=== PATIENT | female | born 1950 | race African-American/Black ===

== ENCOUNTER → 2017-04-28 | Outpatient (CLI) | payer BC ==
[~2017-04-28] MED LIST: AMLO5TAB2 PO; CHOL500016 PO; DICL75TA PO; FENO145T2 PO; IOHEXOL 180 MG/ML 10 ML VIAL. ONE; SIMV20TA3 PO; methylPREDNISolone ACETATE 40 MG/ML VIAL. ONE; methylPREDNISolone ACETATE 80 MG/ML VIAL. ONE
--- NOTE | 2017-04-29 03:12 | PAIN ---
DATE OF SERVICE: 04/28/2017 INITIAL CONSULTATION FOR PAIN CLINIC CHIEF COMPLAINT: Low back and left lower extremity pain. HISTORY OF PRESENT ILLNESS: This is a 66-year-old female who presents with history of pain since January of this year in the low back and left lower extremity, not a result of any specific injury or action she is aware of, but happened fairly suddenly. She had difficulty getting out of the bed one morning in January, has had pain in the low back and left lower extremity since that time. She has been doing some physical therapy and is currently doing it as well over the past about 4 weeks. The patient reports it is improved, but not to more than 50% improvement. The patient reports the pain is now tingling with numbness and shooting pain, worse with standing and walking, better with lying down or sitting in the low back bilaterally into the posterior gluteus, posterior thigh on the left side, posterior calf, knee and into the foot and the sole of the foot, which feels like she is walking with a brick under her shoe on the left side only. The patient reports her disability rating from 0 to 10, 10 being the worst, is a 5 with family and home responsibilities, social activity, occupation and sexual behavior, 10 with recreation, 0 with self care and life support activities. The patient has tried prednisone pack which did not help, hydrocodone which does help and cyclobenzaprine which was not helpful as well. The patient did have a MRI scan of the lumbar spine dated 04/17/2017 showing moderate degenerative changes with most prominent at L3-L4 with moderate circumferential disk bulge and right central disk extrusion with moderate facet arthropathy and ligamentum flavum infolding resulting in moderate to severe bilateral neural foraminal stenosis and severe spinal canal stenosis. The patient is currently doing physical therapy as noted. She had not any modalities or other treatments at this time. The patient reports no loss of motor function, but does have significant fatigability in the left leg with walking or standing. Again better with sitting or lying down. The walking and standing exacerbated it significantly. PAST MEDICAL HISTORY: The patient's past medical history is significant for hypertension and no other significant medical history. PAST SURGICAL HISTORY: No previous surgeries. CURRENT MEDICATIONS: Include amlodipine, diclofenac, simvastatin, vitamin D and fenofibrate. ALLERGIES: The patient has no known drug allergies. FAMILY HISTORY: Significant for no major medical problems or conditions. SOCIAL HISTORY: The patient does not smoke, drinks alcohol very rarely. She is and lives with her spouse and lives locally in [facility], works at a local bank. REVIEW OF SYSTEMS: The patient's review of systems is positive for those items mentioned in the history of present illness. All systems reviewed and otherwise negative. It is complete, full and well documented on the patient's chart. PHYSICAL EXAMINATION: VITAL SIGNS: The patient's blood pressure is 173/93, pulse is 81, respirations 18, temperature 97.4 degrees Fahrenheit, height is 5 feet 4 inches and weighs 192 pounds. GENERAL: The patient is awake, alert, oriented, appropriate and very pleasant demeanor. HEENT: Head shows normocephalic and atraumatic. Extraocular movements are intact and symmetrical. Oral cavity shows mucous membranes are moist and pink. Dentition is intact. NECK: Shows anterior throat supple without palpable lymphadenopathy noted. Swallow reflex is symmetrical. CHEST: Shows normal on inspection. Breath sounds are clear to auscultation bilaterally. HEART: Shows S1 and S2 clear. No murmurs auscultated. ABDOMEN: Soft, nontender and nondistended. No palpable organomegaly is noted. No rebound or guarding demonstrated. Musculoskeletal: The patient's back shows spine grossly in the midline, normal-appearing cervical lordotic curvature, thoracic kyphotic curvature and lumbar lordotic curvature with no previous bruises, lesions rashes or scars noted. Lumbar paraspinous musculature shows symmetrical on inspection. With palpation shows some mild to moderate tenderness with palpation in the lumbar distribution without specific radiation, without asymmetry atrophy or hypertrophy. No tenderness with palpation over the spinous processes, sacrum or sacroiliac regions. The patient has good rotational motion of the lumbar spine, both laterally as well as extension and flexion without difficulty without pain reported. Lower extremities show deep tendon reflexes at 2+ in the patellar and 1+ tendo calcaneus tendons. Motor exam is strong with 5/5 dorsiflexion and extension bilaterally. Peripheral pulses are 1+ posterior tibial and dorsalis pedis pulses. No peripheral edema is noted bilaterally. Straight leg raising is noted to be positive on the left at about 45 degrees decreased with knee flexion and left side is negative. Gaenslen's and Tristin's maneuvers are negative bilaterally. The patient is able to stand, stand on her toes without difficulty or loss of balance, is ambulating without any assistive devices and has a normal-appearing gait for a short distance in the office today, did not appear to favor the right or left lower extremity to any significant degree. IMPRESSION: 1. This is a 66-year-old female with approximate 3-month history of increasing pain in the low back and left lower extremity in a radicular fashion. 2. MRI scan of the lumbar spine as noted. 3. History of hypertension. PLAN: Options were discussed with the patient including conservative medical management, physical therapy and interventional techniques and she is doing physical therapy; however, she is interested in interventional techniques. We discussed a lumbar epidural steroid injection using description as well as anatomical models to describe the procedure. Risks were then discussed including, but not limited to bleeding, infection, possibility of epidural hematoma, subsequent neurologic compromise, dural puncture, headaches, spinal cord and/or nerve damage, side effects of steroid medication and poor results regarding pain control. The patient understands and wishes to proceed. The patient will return to clinic in approximately 2 weeks for followup. She was counseled as to return appointment, activity level and side effects to be aware of. DIAGNOSES: Lumbar radiculopathy with lumbar degenerative disk disease, lumbar spinal stenosis. PROCEDURE: Lumbar epidural steroid injection under sterile prep and drape using local anesthetic. MEDICATIONS INJECTED: A total of 120 mg of Depo-Medrol plus 10 mL of preservative-free normal saline and 2 mL of Isovue for contrast. CONDITION AT DISCHARGE: Stable. The patient tolerated the procedure well and had no complications. NAHUN AVENDAÑO MD DR: ADAMS/oneida JOB#: [id number] / [id number]
== END | disposition home or self-care (01) ==
LOC: PNCL 10:22
PROVIDERS: ATTEND Anesthesiology
DX: M51.16 Intervertebral disc disorders with radiculopathy, lumbar region (principal); M48.061 Spinal stenosis, lumbar region without neurogenic claudication; I10 Essential (primary) hypertension
CPT/HCPCS: 62323; J1030; J1040

== ENCOUNTER → 2017-05-12 | Outpatient (CLI) | payer BC ==
--- NOTE | 2017-05-12 18:50 | PAIN ---
DATE OF SERVICE: 05/12/2017 DIAGNOSES: Lumbar radiculopathy with lumbar spinal stenosis, lumbar degenerative disk disease. HISTORY OF PRESENT ILLNESS: The patient is a 66-year-old female who returns for followup status post lumbar epidural steroid injection x 1. The patient reports about 50% improvement overall, still some pain in the left lower extremity and low back, mostly down the posterolateral aspect of the thigh, low back, lateral thigh, anterior thigh and medial lower leg as well as the posterior lower leg to the ankle on the left side only. The patient reports no new motor or sensory deficits. The patient reports pain is aching, tingling, burning on and off in intensity now, much better than it was with better ease and comfort with a gradual increase in her activity of daily livings without difficulty and sleeping well at night. The patient reports it is much better with sitting or lying down; worse with standing, walking, changing positions or flexing for prolonged periods and repetitive motions. She has been doing some yard work, which increased the pain over the weekend, but has been better over the past 2 days since she is not doing as much activity. The patient reports pain is 5 on a scale of 10 at its worse, 5 on average and a 3 at its least, is a 3 this morning. The patient reports no new motor or sensory deficits, no new bowel or bladder incontinence or other complaints. PHYSICAL EXAMINATION: VITAL SIGNS: The patient's blood pressure 160/96, pulse 79, respirations 18, temperature is 98.2 degrees Fahrenheit. Height is 5 feet 4 inches, weight is 189 pounds. GENERAL: The patient is awake, alert, oriented, appropriate, very pleasant demeanor. HEENT: Head shows normocephalic, atraumatic. Extraocular muscles are intact and symmetrical. Oral cavity: Mucous membranes moist and pink. Dentition is intact. NECK: Shows anterior throat supple without palpable lymphadenopathy noted. Swallow reflex is symmetrical. CHEST: Shows normal on inspection. Breath sounds clear to auscultation bilaterally. HEART: Shows S1, S2 clear. No murmurs auscultated. ABDOMEN: Soft, nontender, nondistended. No palpable organomegaly. No rebound or guarding demonstrated. BACK: The patient's back shows spine grossly in the midline. Normal appearing thoracic kyphosis and lumbar lordotic curvature. Lumbar paraspinous muscle shows symmetrical on inspection with palpation shows some moderate tenderness to palpation bilaterally, but diffusely in the paraspinous muscles without radiation. The patient has full rotational motion both laterally as well as extension and flexion without difficulty. EXTREMITIES: Lower extremities show deep tendon reflexes 2+ in the patellar, 1+ tendo-calcaneus tendons are equal. Motor exam is strong with 5/5 dorsiflexion, extension, quadriceps and hamstring flexion and symmetrical. Peripheral pulses are 1+ posterior tibial. No peripheral edema is noted. Options were discussed with the patient. The patient's old chart was reviewed as her current medication regimen and updated. Current review of systems is updated today as well. We will proceed with a second in the series of lumbar epidural steroid injection today with fluoroscopic guidance. Risks were again discussed including, but not limited to bleeding, infection, possibility of epidural hematoma, subsequent neurological compromise, dural punctures, headaches, spinal cord and/or nerve damage, side effects of steroid medication and poor results regarding pain control. The patient understands and wished to proceed. The patient will return to clinic in approximately 2 weeks for followup. She was counseled on return appointment, activity level and side effects to be aware of. DIAGNOSES: Lumbar radiculopathy with lumbar degenerative disk disease, lumbar spinal stenosis. PROCEDURE: Lumbar epidural steroid injection, translaminar approach at the L4-L5 level using C-arm fluoroscopic guidance under sterile prep and drape and local anesthetic. MEDICATION INJECTED: A total of 120 mg Depo-Medrol plus 10 mL preservative-free normal saline and 2 mL of Isovue for contrast. CONDITION AT DISCHARGE: Stable. The patient tolerated procedure well, had no complications. NAHUN AVENDAÑO MD DR: ADAMS/oneida JOB#: [id number] / [id number]
== END ==
LOC: PNCL 09:16
PROVIDERS: ATTEND Anesthesiology
DX: M51.16 Intervertebral disc disorders with radiculopathy, lumbar region (principal); M48.061 Spinal stenosis, lumbar region without neurogenic claudication
CPT/HCPCS: 62323; J1030; J1040

== ENCOUNTER → 2021-03-18 | Outpatient (CLI) | payer MEDICARE ==
[~2021-03-18] MED LIST changes: +AMLO-186 PO; -AMLO5TAB2 PO; -FENO145T2 PO; +FENO145T3 PO; -IOHEXOL 180 MG/ML 10 ML VIAL. ONE; +SIMV20TA18 PO; -SIMV20TA3 PO; -methylPREDNISolone ACETATE 40 MG/ML VIAL. ONE; -methylPREDNISolone ACETATE 80 MG/ML VIAL. ONE
--- NOTE | 2021-03-18 14:35 | RAD ---
EXAMINATION: MRI RIGHT LOWER EXTREMITY JOINT WITHOUT INDICATIONS: Acute right knee pain. TECHNIQUE: Multiplanar multisequence MRI of the right knee was obtained without contrast. COMPARISON: None. FINDINGS: There is motion artifact on coronal STIR and axial T2 fat sat series. MENISCI: There is a degenerative tear of the body and anterior horn lateral meniscus with extrusion of the body and anterior horn tissue there is increased intrasubstance signal in the posterior horn l ateral meniscus. The medial meniscus is intact. LIGAMENTS: The anterior and posterior cruciate ligaments are intact. The medial collateral ligament and lateral collateral ligament complex are intact. EXTENSOR MECHANISM: The quadriceps and patellar tendons are intact. Fat pads are normal. Retinacula are intact. BONES AND CARTILAGE: There is full-thickness cartilage loss along the lateral patellar facet with morrow bchondral cysts, and deep partial-thickness cartilage loss along the rest of the patella. Deep partia l and full-thickness cartilage loss along the trochlea. There is predominantly full-thickness cartilage loss throughout the weightbearing lateral compartment with mild subchondral marrow edema. There is deep partial and full-thickness cartilage loss in the weightbearing medial compartment. Subc hondral cysts in the posterior medial femoral condyle. No acute fracture. There are small tricompartmental osteophytes, greatest in the lateral compartment. OTHER: Moderate joint effusion. There is subcutaneous edema about the knee. Small Elias cyst. Muscle s are intact. IMPRESSION: 1. Degenerative tear of the body and anterior horn lateral meniscus with extrusion. 2. Tricompartmental degenerative joint disease with large areas of full thickness cartilage loss in a ll 3 compartments. 3. Large joint effusion. Soft tissue edema about the knee. Electronically signed by: Sherley Florez MD (03/18/2021 2:32 PM) [id number]
== END ==
LOC: MRI 09:22
PROVIDERS: ATTEND Nurse Practitioner
DX: S83.281A Other tear of lateral meniscus, current injury, right knee, initial encounter (principal); M25.461 Effusion, right knee; M71.21 Synovial cyst of popliteal space [Baker], right knee; M17.11 Unilateral primary osteoarthritis, right knee; X58.XXXA Exposure to other specified factors, initial encounter; Y93.89 Activity, other specified; Y92.89 Other specified places as the place of occurrence of the external cause; Y99.8 Other external cause status
CPT/HCPCS: 73721